=== PATIENT | female | born 1985 | race Hispanic/Latino ===

== ENCOUNTER 2018-11-06 10:02 | Day surgery (SDC) | payer OTHER, SELFPAY ==
--- NOTE | 2018-11-06 12:08 | PDOC.FPROB ---
FMR OB H&P: HPI - History of Present Illness Chief Complaint: transfer from clinic Indentification: History of Present Illness: This is a 33yo at 32.4 weeks EGA by LMP and 12.4w US and hx of pregestational DM presenting from clinic after she had a variable decell visualized on NST. Pt has no complaints at this time. Reports 2 mild contractions/day, good mvmt. Denies VB and LOF. Regarding pregestational DM pt is insulin dependent and reports good compliance with fasting BG in the 80's and 90's. Primary Care Physician: Hannah FMR OB H&P: Current - Care : 5 Para: [id number] Gestational age: 32.4w Due date: 12/28/18 Dating Criteria: LMP and 12.4w US - OB Labs Antibody Screen: negative HIV: negative RPR: negative Gonorrhea: negative Chlamydia: negative GBS: unknown FMR OB H&P: History - Past Medical History PMH: DM2 - OB History OB History: 3 full term vaginal deliveries, no reported complications. 1 spontaneous 1T - Surgical History Sx History: none - Social History Social History: denies etoh/tobacco/drugs - Family History Family History: DM FMR OB H&P: Medications - Current Allergies/Adverse Reactions: Allergies Allergy/AdvReac Type Severity Reaction Status Date / Time No Known Allergies Allergy Verified 11/06/18 10:42 FMR OB H&P: ROS - Review of Systems General: denies: fever/chills, fatigue ENT: denies: nasal congestion, rhinorrhea Cardiovascular: denies: chest pain, palpitation Gastrointestinal: denies: abdominal pain, indigestion Genitourinary (Female): denies: incontinence, dysuria Musculoskeletal: denies: pain, stiffness Neurologic: denies: syncope, seizures Integumentary: denies: rash, lesions Hematologic/Lymphatic: denies: prolonged or excessive bleeding, enlarged lymph nodes Psychological: denies: depression, anxiety FMR OB H&P: Vital Signs - Maternal Vital signs: BP 93/59, HR 71, RR 16 - Heart Tones Baseline: 144 Variability: moderate Acceleration: absent Deceleration: absent Category: category 1 FMR OB H&P: Physical Exam - Physical Exam General: NAD, awake, alert and oriented HEENT: normocephalic and atraumatic, grossly normal vision, grossly normal hearing Neck: supple, trachea midline Breast: symmetric Heart: RRR, normal S1/S2 General: CTAB, no respiratory distress Abdomen: soft, gravid Musculoskeletal: pulses present Neurological: sensation to pain,touch and proprioception grossly normal, no focal deficit Skin: no rash, good tugor Lymphatic: no purpura, no petechia Psychiatric: intact recent and remote memory, good judgement and insight FMR OB H&P: Results - Labs Lab results: Laboratory Results - last 24 hr 11/06/18 11:00 POC Glucose 94 FMR OB H&P: A/P - Problem List (1) Pregestational diabetes mellitus, modified White class B Current Visit: Yes Status: Acute Code(s): O24.319 - UNSP PRE-EXISTING DIABETES IN , UNSP TRIMESTER (2) Current Visit: Yes Status: Acute Discussion: 33yo at 32.4 weeks EGA by LMP and 12.4w US and hx of pregestational DM presenting from US clinic after she had a variable decell Hx of Variable decelleration on NST A- BPP/NST completed in hospital- 06/04 with PO 13.9. Mother reporting good mvmt. No signs of distress P- Pt is safe for discharge with plans for close outpt f/u pregestational diabetes A- Pt appears to be well controlled with recent A1C 5.9 and random BG 94 in room. Pt reports good compliance as well. P- f/u outpt - continue home insulin regimen at 32.4w EGA -routine care Addendum - Attending - Attending Attestation Date/Time: 11/06/18 1895 I personally evaluated the patient and discussed the management with Dr. Evans and Phyllis I agree with the History, Examination, Assessment and Plan documented above with any addition or exceptions noted below. 33 yo female at 32.3 wks by LMP/12.4 wk sono here for nonreassuring monitoring in clinic. Patient reports good movement. Denies LOF, VB, discharge, dysuria, headache, visual changes, and abdominal pain. Patient presented to US clinic thinking she had an appointment. Due to risk patient was placed on the NST and noted to have variable decels. Subsequently sent to hospital for monitoring. POC glucose 94 FHT: 140/mod/pos acels/no decels No contractions Ultrasound: Cephalic. Anterior, not low lying placenta. CL 3.9 cm. BPP 8/8. HR 165. EFW = 2152g (66% per Hadlock) PO = 13.9 cm 1. Nonreassuring monitoring: Improved. Reassuring status at present. BPP 8/8. NST now reactive. Will feed patient and discharge to home. 2. sIUP: IOB labs reviewed. Anatomy reviewed. Pap NILM . Flu 08/12/18. Tdap 09/2018. 3T negative. 3. Class B pregestational DM: Currently on NPH = and Lispro = . POC glucose 94. Will give 13 units Lispro prior to lunch meal. A1c = 7.3 --> 5.7 --> 5.9 (needs repeat this month) Baseline labs reviewed. Cr = 0.37, AST = 24, PLT = 355, 24 hour protein = 116 , TSH = 1.16 Eye exam: no DM retinopathy anatomy and ECHO grossly normal EKG: no LVH 4. hx of macrosomia: EFW = 22% at 19.3 wks EFW = 53% at 24.1 wks EFW = 69% at 29.1 wks EFW = 66% at 32.3 wks 5. BMI 32 6. hx of subchorionic hemorrhage in 1T Dispo: Continue electronic monitor x 60 mins. If remain reassuring ok to d /c to home. Follow up with [facility] at scheduled OV. Continue weekly testing. Will need repeat A1c this month in clinic. Will need repeat growth at 36 wks. Whitney
[2018-11-06 12:28] VITALS: BMI 32.4
[2018-11-06] MEDS ORDERED: HumaLOG 300 UNITS/3 ML VIAL SC SCH (12:30)
--- NOTE | 2018-11-06 13:23 | PDOC.EVN ---
Event Note - Event Note Event Note: Pt had reassuring electronic monitor strip after 60 mins showing moderate variability with accells, no decells. Follow up with [facility] at scheduled appointment on 11/13/2018. Continue weekly testing. Pt has been advised to check BG in 2 hours as she just had lunch and home insulin dose. Will also need repeat A1c this month in clinic. Will need repeat growth at 36 wks.
--- NOTE | 2018-11-06 14:02 | ULT ---
ULTRASOUND BIOPHYSICAL PROFILE: Date: 11/06/18 HISTORY: Nonreactive stress test. COMPARISON: None. TECHNIQUE: Real-time Araiza scale and color evaluation of the gravid uterus is performed for biophysical profile s core. FINDINGS: There is a single, viable intrauterine , with average ultrasound age of 32 weeks/1 day, and estimated date of delivery of 12/31/18. Estimated weight is 4 lbs and 12 oz, 66th percentile. Cervix measures 3.6 cm in length. Biometry: BPD: 7.96 cm, 32 weeks/0 days HC: 29.27 cm, 32 weeks/2 days AC: 30.65 cm, 34 weeks/4 days FL: 6.06 cm, 31 weeks/4 days Amniotic fluid index: 13.9 cm. heart rate: 156 BPM. Biophysical profile score: 8/8. position is vertex and placenta is left. IMPRESSION: Single, viable intrauterine , with biophysical profile score 8/8. POS: [facility]
--- NOTE | 2018-11-11 15:34 | ULT ---
ULTRASOUND BIOPHYSICAL PROFILE: US OB COMPLETE: Date: 11/06/18 HISTORY: Nonreactive stress test. COMPARISON: None. TECHNIQUE: Real-time Araiza scale and color evaluation of the gravid uterus is performed for biophysical profile s core. FINDINGS: There is a single, viable intrauterine , with average ultrasound age of 32 weeks/1 day, and estimated date of delivery of 12/31/18. Estimated weight is 4 lbs and 12 oz, 66th percentile. Cervix measures 3.6 cm in length. Biometry: BPD: 7.96 cm, 32 weeks/0 days HC: 29.27 cm, 32 weeks/2 days AC: 30.65 cm, 34 weeks/4 days FL: 6.06 cm, 31 weeks/4 days Amniotic fluid index: 13.9 cm. heart rate: 156 BPM. Biophysical profile score: 8/8. position is vertex and placenta is left. IMPRESSION: Single, viable intrauterine , with biophysical profile score 8/8.
== END 2018-11-06 13:22 | disposition home or self-care (01) ==
LOC: L&D/OP 10:02
PROVIDERS: ATTEND Student in an Organized Health Care Education/Training Program
DX: Z01.89 Encounter for other specified special examinations (principal); O24.113 Pre-existing type 2 diabetes mellitus, in pregnancy, third trimester; E11.9 Type 2 diabetes mellitus without complications; Z3A.32 32 weeks gestation of pregnancy; Z79.4 Long term (current) use of insulin
CPT/HCPCS: 36416; 76805; 76819; 96372; 99283